=== PATIENT | female | born 1960 | race Caucasian/White ===

== ENCOUNTER 2021-01-17 10:17 | Emergency (ER) | payer MEDICAID, SELFPAY ==
--- NOTE | 2021-01-17 | ECG_ITS ---
Test Reason : DIFFICULTY BREATHING Blood Pressure : / mmHG Vent. Rate : 098 BPM Atrial Rate : 098 BPM P-R Int : 134 ms QRS Dur : 080 ms QT Int : 348 ms P-R-T Axes : 050 -28 024 degrees QTc Int : 444 ms Normal sinus rhythm Minimal voltage criteria for LVH, may be normal variant Borderline ECG When compared with ECG of 08-APR-2017 11:17, No significant change was found Referred By: Generic ED Physician Electronically Signed By:TYLER SWEENEY MD
--- NOTE | ~2021-01-17 | XR_ITS ---
EXAMINATION: XR CHEST CLINICAL INFORMATION: Asthma COMPARISON: Chest 04/08/2017 TECHNIQUE: Frontal view of the chest was obtained. FINDINGS: The lungs are well-expanded and clear of acute pneumonic process. There is minimal linear scarring in the lingula. The heart size and pulmonary vascularity is normal. There is mild spondylosis dorsal spine. No lytic process. XR/XR chest 1V IMPRESSION: Minimal scarring in the lingula. No change from 04/08/2017.
[2021-01-17 10:25] VITALS: BP 123/85; PULSE 100; RESP 21; TEMP 36.7; O2SAT 98; BMI 32.5
--- NOTE | 2021-01-17 10:36 | PC.NURSE ---
lungs - coarse exp wheezing all lobes.
--- NOTE | 2021-01-17 11:30 | ED.SOB ---
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 Feels like her asthma which is unrelieved with her MDI and nebulizer machine at home. No fevers, chills, chest pain, leg swelling or pain. She denies any recent history of admissions for asthma. No history of intubation. Related Data Previous Rx's Medication Instructions Recorded albuterol sulfate 2 puff INHALATION QID PRN #6.7 g 01/17/21 prednisone 40 mg PO DAILY #8 tab 01/17/21 Allergies Allergy/AdvReac Type Severity Reaction Status Date / Time aspirin [ASA] Allergy Unknown RASH Unverified 04/07/20 17:40 Review of Systems Review of Systems: Yes all other systems are reviewed and are negative Constitutional: Constitutional: Reports no additional constitutional complaints, Denies body ache(s), Denies chills, Denies fever(s), Denies headache(s) and Denies weakness Eyes: Eyes: Reports no additional eye complaints and Denies change in vision ENT: Reports system reviewed and no additional complaints, except as documented, Denies dizziness, Denies headache(s), Denies nasal congestion, Denies nasal discharge and Denies neck pain Cardiovascular: Cardiovascular: Reports no additional cardiovascular complaints, Denies chest pain, Denies leg edema and Reports dyspnea Respiratory: Respiratory: Reports no additional respiratory complaints, Reports cough and Reports dyspnea Gastrointestinal: Gastrointestinal: Reports no additional gastrointestinal complaints, Denies abdominal pain, Denies diarrhea, Denies nausea and Denies vomiting Genitourinary: Genitourinary: Reports no additional female genitourinary complaints and Denies urinary incontinence Musculoskeletal: Musculoskeletal: Reports no additional musculoskeletal complaints, Denies back pain, Denies arthralgias, Denies joint swelling, Denies neck pain, Denies numbness and Denies tingling Integumentary/Breasts: Skin/Breast: Reports system reviewed and no additional complaints, except as docu and Denies rash Neurologic: Reports system reviewed and no additional complaints, except as documented, Denies Abnormal speech present, Denies dizziness, Denies headache(s), Denies numbness, Denies tingling and Denies weakness PMFSH Past Medical History Attestation statement: The following information was validated with the patient. Source: old records reviewed and nursing notes reviewed Medical History Asthma Diabetes High cholesterol Surgical History H/O abdominal surgery Social History Social History Alcohol intake: never Patient Tobacco Use Status: Current everyday Tobacco user Use of substances other than those prescribed or required for medical reasons: No Advance Directives: No Advance Directives Information Provided: Yes Physical Exam Vital Signs: Vital Signs: Last Vital Signs Temp 98.2 F 01/17/21 13:57 Pulse 97 01/17/21 13:57 Resp 15 01/17/21 13:57 BP 108/63 01/17/21 13:57 Pulse Ox 98 01/17/21 13:57 Body Mass Index 32.5 Const: General: cooperative, healthy appearing, comfortable and no acute distress Orientation/consciousness: patient oriented x3 Limitations: no limitations HENMT: Head: Yes normal to inspection Ears: hearing grossly normal bilaterally General nose exam: Normal external nose present Face and sinus: Yes normal facial exam Mouth: Normal oral and palatal mucosa present Throat: Yes posterior oropharynx normal Eyes: General: appearance normal, both eyes and all related structures Pupils: Equal, round and reactive pupils present Neck: Neck: Yes normal visual inspection Chest: Chest palpation & inspection: normal inspection of the chest Resp: Other: Inspiratory and expiratory wheezing throughout Effort & Inspection: normal respiratory effort Cardio: Rate: regular rate Rhythm: regular rhythm Peripheral pulses: Peripheral pulses 2+ throughout GI: Inspection: Yes normal to inspection Palpation (GI): Soft to palpation and nontender Auscultation: normal bowel sounds Back/Spine/Pelvis: Thoracic/Lumbar Spine: thoracic and lumbar spine normal to inspection Skin: General skin exam: no rashes or lesions noted Neuro: General: patient oriented x3, no focal motor deficits and normal sensation to monofilament Cranial nerves: Yes Equal, round and reactive pupils present Cognition (Neuro): normal cognition Speech: No Abnormal speech present Gait exam (Neuro): Normal gait present Motor exam (neuro): 5/5 motor strength present throughout Extrem: General: Yes normal to inspection, Yes no pedal edema and Yes no calf tenderness Course Course Course Narrative: 60-year-old female with a past medical history of asthma here with complaints of cough, wheezing and shortness of breath for the last 2 days. No fevers or chills or chest pain. She does have wheezing on arrival with stable vital signs. Will check chest x-ray, EKG, COVID screen, labs. Will give DuoNeb, magnesium and Solu-Medrol - Labs are unremarkable. EKG shows no ischemic changes. Chest x-ray negative. COVID screen negative. Patient is still having some mild expiratory wheezing so will repeat her nebulizer 1515- Patient feeling improved. Wheezing is improved. She ambulated around the emergency department with oxygen saturations greater than 96%. Likely asthma exacerbation. Will send home with brief course of prednisone. Reviewed worrisome signs and symptoms and when to return to the emergency department. Comfortable discharge home. MDM - SOB/Dyspnea Differential Diagnosis Differential diagnosis: Likely pneumonia and asthma with exacerbation Medical Records Attestation: I reviewed the patient's medical records. Lab Data Attestation: I reviewed the patient's lab results. Result diagrams: 01/17/21 11:28 01/17/21 11:28 Labs: Lab Results 01/17/21 01/17/21 01/17/21 Range/Units 11:28 11:28 11:28 WBC 10.0 (4.8-10.8) X10*3/uL RBC 4.27 (4.20-5.50) X10*6/uL Hgb 11.6 L (12.0-16.0) g/dl Hct 37.3 (37-47) % MCV 87.4 (80-98) fL MCH 27.2 (27.0-33.0) pg MCHC 31.1 (31.0-35.0) g/dl RDW 13.9 (11.0-16.0) % Plt Count 180 (160-400) X10*3/uL MPV 13.0 H (9.4-12.3) fL Immature Gran % (Auto) 0.3 (0.0-0.4) % Neut % (Auto) 51.7 (45-73) % Lymph % (Auto) 37.4 (20-40) % [place] % (Auto) 7.1 (2-11) % Eos % (Auto) 2.9 (0-4) % Baso % (Auto) 0.6 (0-2) % Lymph # (Auto) 3.7 (1.2-4.9) X10*3/uL [place] # (Auto) 0.7 (0.1-1.2) X10*3/uL Eos # (Auto) 0.3 (0.0-0.4) X10*3/uL Baso # (Auto) 0.1 (0.0-0.2) X10*3/uL Abs Immat Gran (auto) 0.03 (0.00-0.03) X10*3/uL Absolute Neuts (auto) 5.2 (2.0-8.3) X10*3/uL Absolute Nucleated RBC 0.000 (0.0-0.012) X10*3/uL Nucleated RBC % (auto) 0.0 (0.0-0.2) /100WBC Smear Tech's Comments Not Reportable Sodium 141 (135-145) mmol/L Potassium 4.0 (3.3-5.1) mmol/L Chloride 105 (96-108) mmol/L Carbon Dioxide 24 (22-29) mmol/L Anion Gap 16 (12-20) BUN 10 (9-16) mg/dL Creatinine 0.74 (0.5-1.4) mg/dL Estim Creat Clear Calc 78.5 Estimated GFR > 60 Random Glucose 260 H (60-115) mg/dL Calcium 9.6 (8.4-10.2) mg/dL COVID-19 ([facility]) Negative (Negative) COVID-19 Clin Com See Note Imaging Data Chest x-ray: Attestation: I personally reviewed and interpreted this imaging study as follows: Radiologist's impression: EXAMINATION: XR CHEST CLINICAL INFORMATION: Asthma COMPARISON: Chest 04/08/2017 TECHNIQUE: Frontal view of the chest was obtained. FINDINGS: The lungs are well-expanded and clear of acute pneumonic process. There is minimal linear scarring in the lingula. The heart size and pulmonary vascularity is normal. There is mild spondylosis dorsal spine. No lytic process. XR/XR chest 1V IMPRESSION: Minimal scarring in the lingula. No change from 04/08/2017. ECG Data Attestation: I personally reviewed and interpreted this ECG as follows: ECG interpretation date: 01/17/21 ECG interpretation time: 10:34 Interpretation: normal sinus rhythm with a rate of 98, normal [place], normal QRS, normal QT Discharge Plan Discharge Clinical Impression: Asthma with exacerbation Patient Disposition: Home, Self-Care Instructions: Asthma (ED) Additional Instructions: Start prednisone tomorrow Increase fluids, rest Your labs and x-ray was normal today. Continue your inhalers and follow up with her primary care doctor Prescriptions: New prednisone 20 mg tablet 40 mg PO DAILY Qty: 8 RF: 0 albuterol sulfate 90 mcg/actuation HFA aerosol inhaler 2 puff inhalation QID PRN (Reason: shortness of breath or wheezing) Qty: 6.7 RF: 0 Referrals: Physician,None [Primary Care Provider] - 2 days Print Language: Sami
[2021-01-17] MEDS: Albuterol/Iprat 2.5/0.5MG 3 ML AMPUL.NEB INHALE (11:37)
[2021-01-17 11:38] VITALS: PULSE 94; O2SAT 98
[2021-01-17 11:42] LABS: Basophils Absolute Auto 0.1 X10*3/uL (0.0-0.2); Basophils Percent Auto 0.6 % (0-2); Eosinophils Absolute Auto 0.3 X10*3/uL (0.0-0.4); Hemoglobin 11.6 g/dl (12.0-16.0); Lymphocytes Percent Auto 37.4 % (20-40); MANUAL DIFF FLAG SCAN; Platelet Count 180 X10*3/uL (160-400); SCAN SMEAR FLAG 1
[2021-01-17 11:44] LABS: Eosinophils Percent Auto 2.9 % (0-4); Hematocrit 37.3 % (37-47); Imm Gran Abs Auto 0.03 X10*3/uL (0.00-0.03); Imm Gran Pct Auto 0.3 % (0.0-0.4); Lymphocytes Absolute Auto 3.7 X10*3/uL (1.2-4.9); Mean Corpuscular HGB Conc 31.1 g/dl (31.0-35.0); Mean Corpuscular Hemoglobin 27.2 pg (27.0-33.0); Mean Corpuscular Volume 87.4 fL (80-98); Monocytes Absolute Auto 0.7 X10*3/uL (0.1-1.2); Monocytes Percent Auto 7.1 % (2-11); Neutrophils Absolute Auto 5.2 X10*3/uL (2.0-8.3); Neutrophils Percent Auto 51.7 % (45-73); Red Blood Count 4.27 X10*6/uL (4.20-5.50); Red Cell Distribution Width 13.9 % (11.0-16.0)
[2021-01-17 11:49] LABS: PLT ABN DIST 1
[2021-01-17] MEDS: Magnesium Sulfate/H2O 2 GM/50 ML PIGGYBACK IV (11:51)
[2021-01-17] MEDS: methylPREDNISolone Sod Succ 125 MG/2 ML VIAL IVPUSH (11:52)
[2021-01-17 11:58] LABS: COVID-19 Test Negative (Negative); IDNOW Serial# 9DD0AD1C
[2021-01-17 12:01] LABS: Anion Gap 16 (12-20); Blood Urea Nitrogen 10 mg/dL (9-16); Calcium 9.6 mg/dL (8.4-10.2); Carbon Dioxide 24 mmol/L (22-29); Chloride 105 mmol/L (96-108); Creatinine Clr Calc Pharmacy 78.5; Estimated Glomerular Filt Rate > 60; Glucose Random 260 mg/dL (60-115); Sodium 141 mmol/L (135-145)
[2021-01-17] MEDS: Albuterol Sulfate (0.083%) 2.5 MG/3 ML VIAL.NEB 5 MG INHALE (13:55)
[2021-01-17 13:57] VITALS: BP 108/63; PULSE 100; PULSE 97; RESP 15; TEMP 36.8; O2SAT 96; O2SAT 98
--- NOTE | 2021-01-17 15:12 | PC.NURSE ---
spo2 95% while ambulating on RA. pt reports significant improvement in work of breathing. 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
== END 2021-01-17 15:36 | disposition home or self-care (01) ==
PROVIDERS: Nurse Practitioner Family; Emergency Provider Emergency Medicine Emergency Medical Services
DX: J45.901 Unspecified asthma with (acute) exacerbation (principal); Z20.822 Contact with and (suspected) exposure to COVID-19
CPT/HCPCS: 36415; 71045; 80048; 85025; 87635; 93005; 94640; 96365; 96366; 96375; 99284; 99285; J2930; J3475

== ENCOUNTER 2021-01-29 09:47 | Emergency (ER) | payer OTHER, SELFPAY ==
--- NOTE | ~2021-01-29 | CT_ITS ---
EXAMINATION: CT abdomen pelvis w con CLINICAL INFORMATION: Reason for Exam LLQ AP, d/o divert COMPARISON: No prior CT available for comparison. TECHNIQUE: Multidetector volumetric imaging was performed from the superior aspect of the liver through the pubic symphysis 85 mL Omnipaque 350 injected. Sagittal and coronal reformatted images were obtained on the technologist's workstation. This CT examination was performed using dose optimization techniques as appropriate, variously including the following: *Automated exposure control *Adjustment of mA and/or kV according to patient size (this includes techniques or standardized protocols for targeted exams where dose is matched to indication/reason for exam; i.e. extremities or head) *Use of iterative reconstruction technique DLP: 633 mGy-cm FINDINGS: LOWER THORAX: Included lung bases are clear. HEPATOBILIARY: Liver is mildly enlarged 23 cm diffusely hypodense suggesting hepatic steatosis. No focal hepatic lesions. No biliary ductal dilatation. GALLBLADDER: Gallbladder not found might have been removed. Prominence of the common bile duct likely physiologic postcholecystectomy. SPLEEN: Spleen is normal in size. PANCREAS: No focal mass or ductal dilatation. STOMACH AND GASTROINTESTINAL TRACT: Stomach is grossly unremarkable. There is diverticulosis, there is very mild pericolic fat stranding around the sigmoid colon left lower quadrant suggesting mild diverticulitis. No abscess, no loculated the fluid.. No CT evidence of appendicitis. ADRENALS: No adrenal nodules. KIDNEYS/URETERS: No hydronephrosis, stones or solid mass lesions. URINARY BLADDER: Partially decompressed. PELVIC VISCERA: Unremarkable PERITONEUM: No free air or fluid. LYMPH NODES: No lymphadenopathy. VASCULAR:Abdominal aorta normal in size, no aneurysm found. BONES, ABDOMINAL WALL AND SOFT TISSUES: Age-appropriate changes of the spine and skeletal system, no destructive osteolytic or osteosclerotic bone lesion found CT/CT abdomen pelvis w con IMPRESSION: Mild DIVERTICULITIS left lower quadrant. No evidence of complication. No abscess. Liver mildly enlarged, diffusely hypodense suggesting hepatic steatosis. Prominence of the common bile duct probably physiologic postcholecystectomy.
[2021-01-29 09:52] VITALS: BP 149/85; PULSE 110; RESP 18; TEMP 36.6; O2SAT 96; BMI 32.1
[2021-01-29 11:45] LABS: Basophils Percent Auto 0.3 % (0-2); Eosinophils Absolute Auto 0.2 X10*3/uL (0.0-0.4); Eosinophils Percent Auto 1.9 % (0-4); Hematocrit 39.3 % (37-47); Hemoglobin 12.5 g/dl (12.0-16.0); Imm Gran Abs Auto 0.06 X10*3/uL (0.00-0.03); Imm Gran Pct Auto 0.5 % (0.0-0.4); Lymphocytes Absolute Auto 3.2 X10*3/uL (1.2-4.9); Lymphocytes Percent Auto 27.1 % (20-40); MANUAL DIFF FLAG NO; Mean Corpuscular HGB Conc 31.8 g/dl (31.0-35.0); Mean Corpuscular Hemoglobin 27.5 pg (27.0-33.0); Mean Corpuscular Volume 86.4 fL (80-98); Mean Platelet Volume 12.6 fL (9.4-12.3); Monocytes Absolute Auto 0.5 X10*3/uL (0.1-1.2); Monocytes Percent Auto 4.6 % (2-11); Neutrophils Absolute Auto 7.6 X10*3/uL (2.0-8.3); Neutrophils Percent Auto 65.6 % (45-73); Platelet Count 162 X10*3/uL (160-400); Red Blood Count 4.55 X10*6/uL (4.20-5.50); Red Cell Distribution Width 13.8 % (11.0-16.0); White Blood Count 11.6 X10*3/uL (4.8-10.8)
[2021-01-29 12:26] LABS: Alanine Aminotransferase 30 U/L (0-31); Alkaline Phosphatase 104 U/L (39-117); Anion Gap 14 (12-20); Aspartate Amino Transferase 15 U/L (5-31); Bilirubin Total 0.4 mg/dL (0.0-1.0); Blood Urea Nitrogen 9 mg/dL (9-16); Calcium 9.3 mg/dL (8.4-10.2); Carbon Dioxide 23 mmol/L (22-29); Chloride 104 mmol/L (96-108); Estimated Glomerular Filt Rate > 60; Glucose Random 263 mg/dL (60-115); Potassium 4.3 mmol/L (3.3-5.1); Sodium 137 mmol/L (135-145); Total Protein 6.9 g/dL (6.5-8.0)
[2021-01-29 13:09] LABS: Glucose Urine UA >=1000 MG/DL (NEG); Leukocyte Esterase Urine NEG (NEG); Nitrite Urine NEG (NEG); PH 5.5 (5.0-8.0); Specific Gravity - Urine 1.025 (1.005-1.025); Urine Blood NEG (NEG); Urine Ketones NEG (NEG); Urine Protein NEG (NEG-TRACE)
--- NOTE | 2021-01-29 13:09 | ED_ITS ---
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 Pain radiates from the mid left side down to the left lower quadrant. There is no associated nausea, vomiting, diarrhea. Her last BM was this morning and normal. She does have some urinary frequency but no dysuria or hematuria. No fevers or chills. Related Data Previous Rx's Medication Instructions Recorded albuterol sulfate 2 puff INHALATION QID PRN #6.7 g 01/17/21 prednisone 40 mg PO DAILY #8 tab 01/17/21 levofloxacin 750 mg PO DAILY 7 Days #7 tab 01/29/21 metronidazole [Flagyl] 500 mg PO BID 7 Days #14 tab 01/29/21 oxycodone 5 mg PO Q6H PRN #10 tab 01/29/21 Allergies Allergy/AdvReac Type Severity Reaction Status Date / Time aspirin [ASA] Allergy Unknown RASH Unverified 04/07/20 17:40 Review of Systems Review of Systems Yes all other systems are reviewed and are negative Constitutional: Reports no additional constitutional complaints, Denies body ache(s), Denies chills, Denies fever(s), Denies headache(s) and Denies weakness Eyes: Reports no additional eye complaints and Denies change in vision Reports system reviewed and no additional complaints, except as documented, Denies dizziness, Denies headache(s), Denies nasal congestion, Denies nasal discharge and Denies neck pain Cardiovascular: Reports no additional cardiovascular complaints, Denies chest pain, Denies leg edema and Denies dyspnea Respiratory: Reports no additional respiratory complaints, Denies cough and Denies dyspnea Gastrointestinal: Reports no additional gastrointestinal complaints, Reports abdominal pain, Denies diarrhea, Denies nausea and Denies vomiting Genitourinary: Reports no additional female genitourinary complaints and Denies urinary incontinence Musculoskeletal: Reports no additional musculoskeletal complaints, Reports back pain, Denies arthralgias, Denies joint swelling, Denies neck pain, Denies n umbness and Denies tingling Skin/Breast: Reports system reviewed and no additional complaints, except as docu and Denies rash Reports system reviewed and no additional complaints, except as documented, Denies Abnormal speech present, Denies dizziness, Denies headache(s), Denies numbness, Denies tingling and Denies weakness Physical Exam Vital Signs: Vital Signs: Last Vital Signs Temp 98.1 F 01/29/21 14:00 Pulse 88 01/29/21 14:00 Resp 18 01/29/21 14:54 BP 122/63 01/29/21 13:25 Pulse Ox 98 01/29/21 14:00 Body Mass Index 32.1 Const: General: cooperative, healthy appearing, comfortable and no acute distress Orientation/consciousness: patient oriented x3 Limitations: no limitations HENMT: Head: Yes normal to inspection Ears: hearing grossly normal bilaterally General nose exam: Normal external nose present Face and sinus: Yes normal facial exam Mouth: Normal oral and palatal mucosa present Throat: Yes posterior oropharynx normal Eyes: General: appearance normal, both eyes and all related structures Pupils: Equal, round and reactive pupils present Neck: Neck: Yes normal visual inspection Chest: Chest palpation & inspection: normal inspection of the chest Resp: Effort & Inspection: normal respiratory effort Auscultation: clear to auscultation bilaterally Cardio: Rate: regular rate Rhythm: regular rhythm Peripheral pulses: Peripheral pulses 2+ throughout GI: Inspection: Yes normal to inspection Palpation (GI): Soft to palpation and Tenderness to palpation present (GI) (LLQ/left mid abdomen-no rebound or guarding) Auscultation: normal bowel sounds : General: Yes CVA tenderness (mild left ) Back/Spine/Pelvis: Back: CVA tenderness (mild left ) Thoracic/Lumbar Spine: thoracic and lumbar spine normal to inspection Skin: General skin exam: no rashes or lesions noted Neuro: General: patient oriented x3, no focal motor deficits and normal sensation to monofilament Cranial nerves: Yes Equal, round and reactive pupils present Cognition (Neuro): normal cognition Speech: No Abnormal speech present Gait exam (Neuro): Normal gait present Motor exam (neuro): 5/5 motor strength present throughout Extrem: General: Yes normal to inspection Course Course Course Narrative: 60-year-old female here with complaints of left-sided back pain which radiates to the left lower abdomen since waking. No other associated symptoms. Will check labs, UA, CT and provide analgesia 1450-CT shows mild diverticulitis. Labs are unremarkable. UA shows no signs of infection. Pain is improved after 2nd dose of morphine. Will send home with course of antibiotics. Reviewed worrisome signs and symptoms of when to return to the emergency department with the patient and her daughter. Comfortable discharge home. MDM - Abdominal Pain Differential Diagnosis Differential diagnosis: Likely calculus of kidney and diverticulitis Medical Records Attestation: I reviewed the patient's medical records. Lab Data Attestation: I reviewed the patient's lab results. Result diagrams: 01/29/21 11:40 01/29/21 11:40 Labs: Lab Results 01/29/21 01/29/21 01/29/21 Range/Units 11:40 11:40 12:27 WBC 11.6 H (4.8-10.8) X10*3/uL RBC 4.55 (4.20-5.50) X10*6/uL Hgb 12.5 (12.0-16.0) g/dl Hct 39.3 (37-47) % MCV 86.4 (80-98) fL MCH 27.5 (27.0-33.0) pg MCHC 31.8 (31.0-35.0) g/dl RDW 13.8 (11.0-16.0) % Plt Count 162 (160-400) X10*3/uL MPV 12.6 H (9.4-12.3) fL Immature Gran % (Auto) 0.5 H (0.0-0.4) % Neut % (Auto) 65.6 (45-73) % Lymph % (Auto) 27.1 (20-40) % [place] % (Auto) 4.6 (2-11) % Eos % (Auto) 1.9 (0-4) % Baso % (Auto) 0.3 (0-2) % Lymph # (Auto) 3.2 (1.2-4.9) X10*3/uL [place] # (Auto) 0.5 (0.1-1.2) X10*3/uL Eos # (Auto) 0.2 (0.0-0.4) X10*3/uL Baso # (Auto) 0.0 (0.0-0.2) X10*3/uL Abs Immat Gran (auto) 0.06 H (0.00-0.03) X10*3/uL Absolute Neuts (auto) 7.6 (2.0-8.3) X10*3/uL Absolute Nucleated RBC 0.000 (0.0-0.012) X10*3/uL Nucleated RBC % (auto) 0.0 (0.0-0.2) /100WBC Sodium 137 (135-145) mmol/L Potassium 4.3 (3.3-5.1) mmol/L Chloride 104 (96-108) mmol/L Carbon Dioxide 23 (22-29) mmol/L Anion Gap 14 (12-20) BUN 9 (9-16) mg/dL Creatinine 0.73 (0.5-1.4) mg/dL Estim Creat Clear Calc 76.0 Estimated GFR > 60 Random Glucose 263 H (60-115) mg/dL Calcium 9.3 (8.4-10.2) mg/dL Total Bilirubin 0.4 (0.0-1.0) mg/dL AST 15 (5-31) U/L ALT 30 (0-31) U/L Alkaline Phosphatase 104 (39-117) U/L Total Protein 6.9 (6.5-8.0) g/dL Albumin 4.0 (3.5-5.0) g/dL Lipase 47 (8-78) U/L Urine Color YELLOW Urine Appearance CLEAR Urine pH 5.5 (5.0-8.0) Ur Specific [place] 1.025 (1.005-1.025) Urine Protein NEG (NEG-TRACE) MG/DL Urine Glucose (UA) >=1000 H (NEG) MG/DL Urine Ketones NEG (NEG) MG/DL Urine Blood NEG (NEG) Urine Nitrite NEG (NEG) Ur Leukocyte Esterase NEG (NEG) Urine RBC 0-2 (0) /HPF Urine WBC 0 (0-4) /HPF Ur Squamous Epith Cells TRACE /LPF Urine Bacteria NONE /LPF Urine Mucus TRACE /LPF Imaging Data CT scan - abdomen: Attestation: I personally reviewed and interpreted this imaging study as follows: Radiologist's impression: [address] [id number] Scan ReportSigned Patient: Sven Grubbs#: [id number]: 9Acct:[id number]/Sex: 60 / FADM Date: 01/29/21Loc: E[address] Dr: Ordering Physician: ANGELA LOVING NP Date of Service: 01/29/21 Procedure(s): CT abdomen pelvis w con Accession Number(s): [id number] cc: ANGELA LOVING NP~ EXAMINATION: CT abdomen pelvis w con CLINICAL INFORMATION: Reason for Exam LLQ AP, d/o divert COMPARISON: No prior CT available for comparison. TECHNIQUE: Multidetector volumetric imaging was performed from the superior aspect of the liver through the pubic symphysis 85 mL Omnipaque 350 injected. Sagittal and coronal reformatted images were obtained on the technologist's workstation. This CT examination was performed using dose optimization techniques as appropriate, variously including the following: *Automated exposure control *Adjustment of mA and/or kV according to patient size (this includes techniques or standardized protocols for targeted exams where dose is matched to indication/reason for exam; i.e. extremities or head) *Use of iterative reconstruction technique DLP: 633 mGy-cm FINDINGS: LOWER THORAX: Included lung bases are clear. HEPATOBILIARY: Liver is mildly enlarged 23 cm diffusely hypodense suggesting hepatic steatosis. No focal hepatic lesions. No biliary ductal dilatation. GALLBLADDER: Gallbladder not found might have been removed. Prominence of the common bile duct likely physiologic postcholecystectomy. SPLEEN: Spleen is normal in size. PANCREAS: No focal mass or ductal dilatation. STOMACH AND GASTROINTESTINAL TRACT: Stomach is grossly unremarkable. There is diverticulosis, there is very mild pericolic fat stranding around the sigmoid colon left lower quadrant suggesting mild diverticulitis. No abscess, no loculated the fluid.. No CT evidence of appendicitis. ADRENALS: No adrenal nodules. KIDNEYS/URETERS: No hydronephrosis, stones or solid mass lesions. URINARY BLADDER: Partially decompressed. PELVIC VISCERA: Unremarkable PERITONEUM: No free air or fluid. LYMPH NODES: No lymphadenopathy. VASCULAR:Abdominal aorta normal in size, no aneurysm found. BONES, ABDOMINAL WALL AND SOFT TISSUES: Age-appropriate changes of the spine and skeletal system, no destructive osteolytic or osteosclerotic bone lesion found CT/CT abdomen pelvis w con IMPRESSION: Mild DIVERTICULITIS left lower quadrant. No evidence of complication. No abscess. Liver mildly enlarged, diffusely hypodense suggesting hepatic steatosis. Prominence of the common bile duct probably physiologic postcholecystectomy. Discharge Plan Discharge Clinical Impression: Diverticulitis Patient Disposition: Home, Self-Care Instructions: Diverticulitis (ED), Diverticulitis Diet (ED) Additional Instructions: Start your antibiotics today Take the pain medication as needed Return for severe abdominal pain, two a more vomiting episodes, fever greater than 100.4 Prescriptions: New levofloxacin 750 mg tablet 750 mg PO DAILY 7 Days Qty: 7 RF: 0 metronidazole [Flagyl] 500 mg tablet 500 mg PO BID 7 Days Qty: 14 RF: 0 oxycodone 5 mg tablet 5 mg PO Q6H PRN (Reason: pain) Qty: 10 RF: 0 No Action prednisone 20 mg tablet 40 mg PO DAILY Qty: 8 RF: 0 albuterol sulfate 90 mcg/actuation HFA aerosol inhaler 2 puff inhalation QID PRN (Reason: shortness of breath or wheezing) Qty: 6.7 RF: 0 Referrals: Eduardo Forman PA-C [Primary Care Provider] - 2 days Interventions: ED Discharge Assessment Last Done: 01/29/21 15:52 Discharge Date/Time: 01/29/21 15:53 [facility] Past Medical History Attestation statement: The following information was validated with the patient. Source: old records reviewed and nursing notes reviewed Medical History Asthma Diabetes High cholesterol Surgical History H/O abdominal surgery Hx of tubal ligation S/P cholecystectomy Social History Social History Alcohol intake: never Patient Tobacco Use Status: Current everyday Tobacco user Advance Directives: Yes Advance Directives Information Provided: No Advance Directives on File: No Patient : No
[2021-01-29 13:13] LABS: Appearance Urine CLEAR; Color Urine YELLOW
[2021-01-29 13:21] LABS: Mucus Urine TRACE /LPF; RBC Urine 0-2 /HPF (0); Squamous Epithelial Cell Urine TRACE /LPF; WBC Urine 0 /HPF (0-4)
[2021-01-29 13:23] LABS: Lipase 47 U/L (8-78)
[2021-01-29 13:25] VITALS: BP 122/63; PULSE 90; RESP 18; TEMP 36.6; O2SAT 100
[2021-01-29 13:39] VITALS: RESP 18
[2021-01-29] MEDS: Morphine Sulfate 4 MG/ML CARTRIDGE IVPUSH ×2 (13:39→14:54)
[2021-01-29 14:00] VITALS: PULSE 88; RESP 18; TEMP 36.7; O2SAT 98
[2021-01-29] MEDS: iohexoL 350 MG/ML 100 ML INFUS..BTL IV (14:11)
[2021-01-29 14:54] VITALS: RESP 18
== END 2021-01-29 15:53 | disposition home or self-care (01) ==
PROVIDERS: Emergency Provider Emergency Medicine; PCP Physician Assistant
DX: K57.92 Diverticulitis of intestine, part unspecified, without perforation or abscess without bleeding (principal); E11.9 Type 2 diabetes mellitus without complications; J45.909 Unspecified asthma, uncomplicated; Z79.899 Other long term (current) drug therapy
CPT/HCPCS: 36415; 74177; 80053; 81001; 81003; 83690; 85025; 96374; 96376; 99284; J2270; Q9967

== ENCOUNTER 2024-08-21 14:45 | Outpatient (REF) | payer MEDICARE, MEDICAID, SELFPAY ==
--- NOTE | ~2024-08-21 | CT_ITS ---
EXAMINATION: CT HEAD WITHOUT CONTRAST CLINICAL INFORMATION: VERTIGO COMPARISON: CT dated March 12, 2016 TECHNIQUE: Contiguous axial imaging was performed from the skull base to vertex without intravenous administration of contrast. This CT examination was performed using dose optimization techniques as appropriate, variously including the following: *Automated exposure control *Adjustment of mA and/or kV according to patient size (this includes techniques or standardized protocols for targeted exams where dose is matched to indication/reason for exam; i.e. extremities or head) *Use of iterative reconstruction technique DLP: 686 mGy-cm FINDINGS: No acute intracranial hemorrhage, mass effect, midline shift, hydrocephalus or herniation. Victor-white matter differentiation is normal. Posterior cranial fossa contents demonstrated no acute intracranial hemorrhage or mass effect. Sellar/suprasellar region demonstrated no gross masses or hemorrhage. Craniocervical junction is intact and normal. Tympanic cavities and mastoid cells are aerated. No air-fluid levels in the included paranasal sinuses. No gross masses or hematoma in the intraconal or extraconal compartments of the orbits. CT/CT head/brain wo IV con IMPRESSION: No acute intracranial hemorrhage or acute brain abnormality by CT. Electronically signed by: Magdi Kumar MD 08/21/2024 03:35 PM EST
--- OUTSIDE RECORDS SUMMARY | 2024-08-21 14:48 | XMS_ITS | Encounter Summary ---
Author Organization [employer] Address [address] [facility] 7t [place] [address] Care Team Providers Care Outside Cutter Hand Name Role Phone Nathaly Hemphill ELIE Primary Care Provider [phone] Reason for Visit * Reason Onset Date Comments Recall 07/30/2024 Encounter Details Date Type Department Care Team (Late st Contact Info) Description 07/30/2024 Telephone [facility] [address] [place] [address] Vianney Rolle MA Recall Aug Social History Tobacco Use Types Packs/Day Years Used Date Smoking Tobacco: Every Day Cigarettes Comments:Eight cigarettes pe r day per pt Alcohol Use Standard Drinks/Week Comments Never 0 (1 standard drink = 0.6 oz pur e alcohol) Depression Answer Date Recorded Patient Health Questionnaire-9 Score 0 04/17/2024 Patient Health Questionnaire-9 Score 0 04/17/2024 Last PHQ-9: Questionnaire Data Not on file 0 04/17/2024 Housing Stability Answer Date Recorded What is your housing situation today? I have drewhamlet jimenez 04/17/[address] you li ve. Do you have problems with any of the following? None of the above 04/17/2024 Food Insecurity Answer Date Recorded Within the past 12 months, y ou worried that your food would run out before you got money to buy more: Never True 04/17/2024 Within the past 12 months,th e food you bought just didn't last and you didn't have enough money to get more: Never True Transportation Answer Date Recorded In the past 12 months, has l ack of transportation kept you from medical appts, meetings, work or from getting things needed for daily living? No 04/17/2024 Utilities Answer Date Recorded In the past 12 months, has t he electric, gas, oil or water company threatened to shut off services in your home? No 04/17/2024 Depression Answer Date Recorded Patient Health Questionnaire-2 Score 0 04/17/2024 Internet Access Answer Date Recorded Internet Access Q1 Yes 04/17/2024 Internet Access Q2 I do not want or need it 03/23 Comments Unknown Sex and Gender Information Value Date Recorded Sex Assigned at Female 12/31/2023 8:37 AM EDT Legal Sex Female 12:09 PM EDT Gender Identity Female 12/31/2023 8:37 AM EDT Sexual Orientation Straight 12/31/2023 8: 37 AM EDT documented as of this encounter Miscellaneous Notes * Telephone Encounter - Vianney Rolle MA - 07/30/2024 10:27 AM EST T/C- Mica Laminating Machine Feeder and Patient made a Office Visit appointment with Jovan for August. Appointment reminder sent via mail. documented in this encounter Plan of Treatment Upcoming Encounters Date Type Department Care Team (Late st Contact Info) Description 08/27/2024 10:30 AM EST Office Visit [facility] [address] [place] [address] Smitha Chin, OD [address] [place] [address] 09/09/2024 10:15 AM EST Office Visit [facility] [address] [place] [address] Nathaly Hemphill NP [address] [place] [address] documented as of this encounter Visit Diagnoses Not on filedocumented in this encounter Additional Health Concerns Assessment Noted Time PHQ-9 Depression Total Score: 0 04/17/20 24 2:18 PM EDT documented as of this encounter Care Teams Outside Cutter Hand Relationship Specialty Start Date End Date Nathaly Hemphill NP [address] [place] [address] PCP - General Family Medicine 04/20/24 documented as of this encounter
--- OUTSIDE RECORDS SUMMARY | 2024-08-21 14:48 | XMS_ITS | Encounter Summary ---
Author Organization [employer] Address [address] [place] [address] 7 [place] [address] Care Team Providers Care Infantry Operations Specialist Name Role Phone Nathaly Hemphill SHIFT PRODUCTION SUPERVISOR Primary Care Provider [phone] Encounter Details Date Type Department Care Team (Late Contact Info) Description 04/03/2024 Orders Only [facility] [address] [place] [phone] Kayli Guzman, DarrickD [address] [place] [address] Social History Tobacco Use Types Packs/Day Years Used Date Smoking Tobacco: Every Day Cigarettes Comments:Eight cigarettes pe r day per pt Comments Unknown Sex and Gender Information Value Date Recorded Sex Assigned at Female 12/31/2023 8:37 AM EDT Legal Sex Female 12:09 PM EDT Gender Identity Female 12/31/2023 8:37 AM EDT Sexual Orientation Straight 12/31/2023 8: 37 AM EDT documented as of this encounter Plan of Treatment Upcoming Encounters Date Type Department Care Team (Late Contact Info) Description 08/27/2024 10:30 AM EST Office Visit [facility] [address] [place] [address] TarSmitha julio, OD [address] [place] [address] 09/09/2024 10:15 AM EST Office Visit [facility] [address] [place] [phone] Nathaly Hemphill NP [address] [place] [address] documented as of this encounter Visit Diagnoses Not on filedocumented in this encounter Care Teams Infantry Operations Specialist Relationship Specialty Start Date End Date Nathaly Hemphill NP [address] [place] [id number] PCP - General Family Medicine 04/20/24 documented as of this encounter
--- OUTSIDE RECORDS SUMMARY | 2024-08-21 14:48 | XMS_ITS | Clinical Summary ---
Author Organization [employer] Address [address] [facility] 7[address] [place] [address] Care Team Providers Care Spiral Winding Machine Helper Name Role Phone Nathaly Hemphill ELIE Primary Care Provider [phone] Allergies Active Allergy Reactions Criticality Noted Date Comments Aspirin Rash Low 12/31/2023 To left hand per pt Medications cyclobenzaprine (Flexeril) 10 MG tabletIndicatio ns:Muscle Spasm Take 1 tablet (10 mg) by mouth at bedtime for 21 days. 21 tablet 12/31/19 24 Active gabapentin (Neurontin) 600 MG tabletIndicatio ns:Diabetic Neuropathy Take 1 tablet (600 mg) by mouth at bedtime. 90 tablet 3 12/31/19 24 2024 Active albuterol 108 (90 Base) MCG/ACT inhaler Inhale 2 puffs every 4 (four) hours if needed for wheezing. 18 g 3 12/31/19 24 2024 Active albuterol (2.5 MG/3ML) 0.083% nebulizer solution Take 3 mL by nebulization every 4 (four) hours if needed for wheezing or shortness of breath. 10/06/19 24 Active Alcohol Swabs (Alcohol Prep) pads 1 each 2 times daily. 100 each 11 04/04/20 24 Active Blood Glucose Monitoring Suppl (FreeStyle Lite) w/Device kit 1 each 2 times daily. 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 45 tablet 04/17/20 24 Active Blood Pressure Monitoring (Blood Pressure Cuff) miscIndications :Elevated BP without diagnosis of hypertension 1 kit if needed each day (bp). 1 each 04/17/20 Active famotidine (Pepcid) 20 MG tabletIndicatio ns:Gastroesopha geal reflux disease with esophagitis, unspecified whether hemorrhage Take 1 tablet (20 mg) by mouth 2 times daily. 180 tablet 04/17/20 Active Omeprazole 20 MG tablet delayed-release Indications:Gas troesophageal reflux disease with esophagitis, unspecified whether hemorrhage Take 1 tablet (20 mg) by mouth Once per day. 30 tablet 2 07/06/20 Active montelukast (Singulair) 10 MG tabletIndicatio ns:Asthma Take 1 tablet (10 mg) by mouth at bedtime. 90 tablet 3 07/06/20 24 2024 Active metFORMIN, OSM, (Fortamet) 500 MG 24 hr tabletIndicatio ns:Type 2 diabetes mellitus with diabetic chronic kidney disease, unspecified CKD stage, unspecified whether intermodal customer service insulin use (CMS/HCC) Take 3 tablets (1,500 mg) by mouth with evening meal. Do not crush, chew, or split. 90 tablet 2 07/06/20 24 2024 Active TRUEplus Lancets 33G miscIndications :Type 2 diabetes mellitus with diabetic chronic kidney disease, unspecified CKD stage, unspecified whether usp insulin use (CMS/HCC) USE DIRECTED TO TEST BLOOD SUGAR EVERY DAY 100 each 2 08/13/19 25 Active glucose blood (FREESTYLE LITE) test stripIndication s:Type 2 diabetes mellitus with diabetic chronic kidney disease, unspecified CKD stage, unspecified whether intermodal customer service insulin use (CMS/HCC) USE DIRECTED TO TEST BLOOD SUGAR EVERY DAY 100 each 2 08/13/19 25 Active FREESTYLE LITE test strip Use as instructed 100 each 04/04/20 24 2024 Discontinued Lancets 33G misc 1 each 2 times daily. 100 each 04/04/20 24 2024 Discontinued Active Problems Problem Noted Date Diagnosed Date Vertigo 07/06/2024 Assessment & Plan (07/06/2024 12:39 PM EST): Persistent positional vertigo, Referral to physical therapy Pt is not tolerant of MRI CT ordered Mild intermittent asthma 07/06/2024 Controlled type 2 diabetes m benji with diabetic neuropathy, without long-term current use of insulin 07/06/2024 Assessment & Plan (07/06/2024 12:38 PM EST): Continue metformin 500 mg tid At goal Dietary counseling 05/10/2024 Assessment & Plan (05/10/2024 5:22 PM EDT): Encouraged minimizing processed foods and increasing whole foods particularly vegetables Exercise counseling 05/10/2024 Assessment & Plan (05/10/2024 5:23 PM EDT): Encouraged daily movement Healthcare maintenance 05/10/2024 Assessment & Plan (05/10/2024 5:23 PM EDT): Pt reports utd on screenings, declines referrals today, labs as ordered below, Referral to eye care Tobacco use disorder 05/10/2024 Assessment & Plan (07/06/2024 12:39 PM EST): Actively cutting down Encouraged to continue Declines NRT today Assessment & Plan (05/10/2024 5:22 PM EDT): Declines assistance cutting down today, but open to low dose ct Type 2 diabetes mellitus wit h diabetic chronic kidney disease 04/17/2024 Assessment & Plan (05/10/2024 5:19 PM EDT): Above goal, though pt admits non compliance, rx for metformin and importance of daily medication reviewed 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 o f face 04/17/2024 Assessment & Plan (07/06/2024 12:40 PM EST): Has visit in november, will work with referrals to try to move to earlier visit Pt does not have transportation to options outside of area Assessment & Plan (05/10/2024 5:22 PM EDT): Will refer for botox injections, hx provided by ent May trial tizanidine in interim Tinnitus of left ear 04/17/2024 Assessment & Plan (05/10/2024 5:19 PM EDT): Will refer to ent Elevated BP without diagnosis of hypertension Assessment & Plan (05/10/2024 5:18 PM EDT): Blood pressure cuff prescribed, pt reports no hx of htn Denies symptoms GERD (gastroesophageal reflux disease) Assessment & Plan (07/06/2024 12:38 PM EST): Stable renew omperazole Assessment & Plan (05/10/2024 5:19 PM EDT): Per baseline, will send h2 cesar Encounters Date Type Department Care Team Description 08/11/2024 Refill [facility] [address] [place] [address] Moses Kenny MD Type 2 diabetes mellitus with diabetic chronic kidney disease, unspecified CKD stage, unspecified whether usp insulin use (CMS/HCC) 07/30/2024 Telephone [facility] [address] [place] [id number] Vianney Rolle MA Recall Feb 07/06/2024 11:30 AM EST Office Visit [facility] [address] [place] [address] Nathaly Hemphill NP Vertigo (Primary Dx); Type 2 diabetes mellitus with diabetic chronic kidney disease, unspecified CKD stage, unspecified whether usp insulin use (CMS/HCC); Mild intermittent asthma, unspecified whether complicated; Controlled type 2 diabetes mellitus with diabetic neuropathy, without long-term current use of insulin (CMS/HCC); Gastroesophageal reflux disease with esophagitis, unspecified whether hemorrhage; Tobacco use disorder; 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 I have drew jimenez 04/17/[address] you [...] Orientation Straight 12/31/2023 8: 37 AM EDT Last Filed Vital Signs Vital Sign Reading Time Taken Comments Blood Pressure 139/82 07/06/2024 11:40 AM EST Pulse 92 07/06/2024 11:40 AM EST Temperature 36.8 ??C (98.2 ??F) 07/06/2024 11:[address] Respiratory Rate 18 07/06/2024 11:40 AM EST Oxygen Saturation 98% 04/17/2024 2:13 PM EDT Inhaled Oxygen Concentration - - Weight 72.6 kg (160 lb) 07/06/2024 11:40 AM EST Height 154.9 cm (5' 1 ) 07/06/2024 11:40 AM EST Body Mass Index 30.23 07/06/2024 11:40 AM EST Plan of Treatment Upcoming Encounters Date Type Department Care Team (Late st Contact Info) Description 08/27/2024 10:30 AM EST Office Visit [facility] [address] [place] [address] Smitha Chin, OD [address] [place] [address] 09/09/2024 10:15 AM EST Office Visit [facility] [address] [place] [address] Nathaly Hemphill, ELIE [address] [place] [address] Health Maintenance Due Date Last Done Comments CT Colonography 1959 Colonoscopy 1959 Colorectal Cancer Screening 1959 FIT DNA/Cologuard 1959 FIT 1959 FOBT 1959 Lipid Panel 1959 Sigmoidoscopy 1959 Diabetes: Foot Exam 1969 Eye Exam 1969 Hepatitis C Screening 1977 DTaP/Tdap/Td Vaccines (1 - Tdap) 1978 Pneumococcal Vaccine: 50+ Years (1 of 2 - PCV) 1978 Pap Smear 1980 Cervical Cancer Screening 1989 HPV/Cotest 1989 Mammogram 1999 Zoster Vaccines (1 of 2) 2009 RSV Patients and Patients Aged 60 years or older (1 - Risk 60-74 years 1-dose series) 2019 COVID-19 Vaccine (1 - 2023-2 5 season) 2024 Influenza Vaccine (#1) 2024 Diabetes: Hemoglobin A1C 10/04/2024 024, 04/17/2024 Alcohol/Substance Use Screening 04/17/2025 04/17/2024 Depression Screening 04/17/2025 04/17/2024, 04/17/2024 SDOH Screening 04/17/2025 04/17/2024 Tobacco Screening 07/06/2025 07/06/2024 HIB Vaccines Aged Out No longer eligi ble based on patient's age to complete this topic HPV Vaccines Aged Out No longer eligi ble based on patient's age to complete this topic Hepatitis A Vaccines Aged Out No long er eligible based on patient's age to complete this topic Hepatitis B Vaccines Aged Out No long er eligible based on patient's age to complete this topic IPV Vaccines Aged Out No longer eligi ble based on patient's age to complete this topic Meningococcal Vaccine Aged Out No britt brenden eligible based on patient's age to complete this topic RSV under 20 months Aged Out No longe r eligible based on patient's age to complete this topic Rotavirus Vaccines Aged Out No longer eligible based on patient's age to complete this topic Procedures Procedure Name Priority Date/Time Associated Diagnosis Comments POCT GLYCATED HEMOGLOBIN, TOTAL Routine 07/06/2024 11:43 AM EST Type 2 diabetes mellitus with diabetic chronic kidney disease, unspecified CKD stage, unspecified whether intermodal customer service insulin use ([facility]) POCT GLUCOSE Routine 07/06/2024 11:42 AM EST Type 2 diabetes mellitus with diabetic chronic kidney disease, unspecified CKD stage, unspecified whether usp insulin use ([facility]) from Last 3 Months Results * (ABNORMAL) POCT HGB A1C (07/06/2024 11:43 AM EST) Hemoglobin A1C 7.1(A) 4.0 - 6.0 % QC Media Lot # [id number] Lot# Expiration Date Blood 07/06/2024 11:4 3 AM EST Nathaly Hemphill NP POINT OF CARE TEST ENTER/EDIT OR DERABLES Final Result * POCT Glucose (07/06/2024 11:42 AM EST) [facility] [address] Glucose Blood, POC 136 60 - 200 mg/dL QC Media Lot # [id number] Lot# Expiration Date ,884 Blood Capillary blood specimen / Unknown 07/06/2024 11:42 AM EST Result [facility] Nathaly Hemphill NP POINT OF CARE TEST ENTER/EDIT OR DERABLES Final Result from Last 3 Months Insurance [place] [id number] [place] [address] [place] [phone] Care Teams Spiral Winding Machine Helper Relationship Specialty Start Date End Date Nathaly Hemphill NP [address] [place] [id number] PCP - General Family Medicine 04/20/24
--- OUTSIDE RECORDS SUMMARY | 2024-08-21 14:48 | XMS_ITS | Clinical Summary ---
Author Organization [facility] Address [address] [place] [id number] Care Team Providers Care Billet Sawyer Name Role Phone Cheyenne Nguyen MD Primary Care Provider Social History Tobacco Use Types Packs/Day Years Used Date Smoking Tobacco: Never Assessed Sex and Gender Information Value Date Recorded Sex Assigned at Not on file Gender Identity Not on file Sexual Orientation Not on file Plan of Treatment Health Maintenance Due Date Last Done Comments Breast Cancer Screening 1959 Diabetes: Annual GFR (Glomerular Filtration Rate) 1959 Diabetes: Annual Foot Exam 1969 Diabetes: Annual Retina Eye Exam 1969 Cervical Cancer Screening: P ap Smear 1980 Zoster Vaccines (1 of 2) 2009 Pneumococcal Vaccine: 65+ Years (2 of 2 - PPSV23 or PCV20) 10/16/2016 08/21/2016 Pneumococcal Vaccine: Pediatrics (0 to 5 Years) and At-Risk Patients (6 to 64 Years) (2 of 2 - PPSV23 or PCV20) 10/16/2016 08/21/2016 RSV Immunization Patients 60 + Years Old (1 - Risk 60-74 years 1-dose series) 2019 COVID-19 Vaccine (1 - 2023-2 5 season) 2024 Influenza Vaccine (#1) 2024 7, 08/21/2016 Cholesterol Screening (Lipid Panel) 04/30/2024 Colorectal Cancer Screening: Colonoscopy 04/30/2024 Depression Screening 04/30/2024 Diabetes: Annual Urine Albumin-Creatinine Ratio (uACR) 04/30/2024 Diabetes: Blood Sugar Contro l Test (HGBA1C) 04/30/2024 Hepatitis C Screening 04/30/2024 Osteoporosis Screening (Bone Density Screening) 04/30/2024 Social Influencers of Health Screening 04/30/2024 Falls Risk Assessment 2024 DTaP,Tdap,and Td Vaccines (2 - Td or Tdap) 08/21/2026 08/21/2016 HIB Vaccines Aged Out No longer eligi [...] on patient's age to complete this topic MMR Vaccines Aged Out No longer eligi ble based on patient's age to complete this topic Meningococcal ACWY Vaccine Aged Out N o longer eligible based on patient's age to complete this topic RSV Immunization Patients Under 20 months Aged Out No longer eligible b ased on patient's age to complete this topic Varicella Vaccines Aged Out No longer eligible based on patient's age to complete this topic Care Teams Billet Sawyer Relationship Specialty Start Date End Date Cheyenne Nguyen MD [address] [place] [address] PCP - General Internal Medicine 03/13/16
--- OUTSIDE RECORDS SUMMARY | 2024-08-21 14:48 | XMS_ITS | Clinical Summary ---
Author Organization [facility] Address [address] [place] [address] Care Team Providers Care Crowning Hammer Operator Name Role Phone Chava Burdick MD Primary Care Provider [phone] Source Comments PLEASE NOTE, if this patient is a minor, it may be UNLAWFUL to discuss sensitive information that is contained in these records (such as FAMILY PLANNING, MENTAL HEALTH or SUBSTANCE ABUSE) with the minor patient's parent or other person without the patient's specific authorization.[facility] Allergies Active Allergy Reactions Criticality Noted Date Comments Aspirin Rash Medium 04/10/2019 Medications nebulizer and compressorIndicatio ns:Intermittent asthma without complication, unspecified asthma severity Use with SOB and cough as needed 1 Each 06/26/20 19 Active inhalational spacing deviceIndications:M ild intermittent asthma with acute exacerbation Use as directed 1 Inhaler 5 07/10/20 19 Active blood pressure monitorIndications: Diabetes mellitus due to underlying condition with hyperosmolarity without coma, without long-term current use of insulin ([facility]),Tobacco use disorder,Elevated BP without diagnosis of hypertension Use as directed 1 Kit 04/15/20 20 Active polyethylene glycol 3350 (MIRALAX) 17 gram/dose powderIndications:C onstipation, unspecified constipation type Take 17 g by mouth once daily 510 g 2 10/13/19 21 Active PROAIR HFA 90 mcg/actuation inhalerIndications: Mild intermittent asthma without complication INHALE 2 PUFFS INTO LUNGS EVERY 4 HOURS NEEDED FOR SHORTNESS OF BREATH OR WHEEZING RESCUE INHALER 8.5 g 5 09/13/19 22 Active alcohol swabsIndications:Di abetes mellitus due to underlying condition with hyperosmolarity without coma, without long-term current use of insulin ([facility]) Use as directed 400 Each 11/02/19 Active lancets (FREESTYLE LANCETS) 28 gaugeIndications:Di abetes mellitus due to underlying condition with hyperosmolarity without coma, without long-term current use of insulin ([facility]) PATIENT TESTS 2 TIMES DAILY. 100 Each 11/02/19 Active blood-glucose meter monitoring kitIndications:Diab etes mellitus due to underlying condition with hyperosmolarity without coma, without long-term current use of insulin ([facility]),Mild intermittent asthma with acute exacerbation For the glucometer covered by insurance. Patient to test 2 times daily as directed. Dx code: 250.00 Patient is not insulin dependent. 1 Each 11/02/19 Active lidocaine (LIDODERM) 5 % patchIndications:Ch ronic right shoulder pain Place 1 Patch onto the skin once daily (every 24 hours) 30 Patch 11/02/19 Active naproxen (NAPROSYN) 500 mg tabletIndications:C hronic right shoulder pain TAKE 1 TABLET BY MOUTH TWICE A DAY WITH A MEAL 60 Tablet 08/17/19 23 Active montelukast (SINGULAIR) 10 mg tabletIndications:D iabetes mellitus due to underlying condition with hyperosmolarity without coma, without long-term current use of insulin ([facility]) TAKE 1 TABLET BY MOUTH EVERYDAY AT BEDTIME 30 Tablet 07/19/20 23 Active omeprazole (PRILOSEC) [address] capsule Take 1 Capsule by mouth once daily 30 Capsule 07/19/20 23 Active metFORMIN (GLUCOPHAGE) 1,000 mg tabletIndications:D iabetes mellitus due to underlying condition with hyperosmolarity without coma, without long-term current use of insulin ([facility]) Take 1 Tablet by mouth 2 (two) times daily with food 60 Tablet 5 07/19/20 23 Active atorvastatin (LIPITOR) 20 mg tabletIndications:M ixed hyperlipidemia Take 1 Tablet by mouth once daily 90 Tablet 1 07/19/20 23 Active blood sugar diagnostic (BLOOD GLUCOSE TEST) stripsIndications:D iabetes mellitus due to underlying condition with hyperosmolarity without coma, without long-term current use of insulin ([facility]) Test strip brand that patient's insurance covers. Patient tests 2 times daily. Dx code: E11.0. Patient is not insulin dependent. 50 Each 11 07/19/20 23 Active albuterol (PROVENTIL) 2.5 mg /3 mL (0.083 %) nebulizer solutionIndications :Mild intermittent asthma with acute exacerbation Take 3 mL by nebulization every 4 (four) hours as needed for wheezing or shortness of breath 25 mL 5 09/27/19 24 Active cyclobenzaprine (FLEXERIL) 10 mg tabletIndications:C hronic right shoulder pain Take 1 Tablet by mouth nightly at bedtime as needed (shoulder pain) 30 Tablet 2 09/27/19 24 Active gabapentin (NEURONTIN) 400 mg capsuleIndications: Diabetic mononeuropathy associated with type 2 diabetes mellitus ([facility]) TAKE 1 CAPSULE BY MOUTH EVERYDAY AT BEDTIME 30 Capsule 2 09/27/19 24 Active Active Problems Problem Noted Date Diagnosed Date Diverticulosis 10/12/2020 Generalized abdominal pain 10/12/2020 Clonic hemifacial spasm, left 05/12/2020 Facial twitching 11/26/2019 Diabetic mononeuropathy asso ciated with type 2 diabetes mellitus ([facility]) 05/06/2019 Tobacco use disorder 05/06/2019 Hyperlipidemia DM (diabetes mellitus) ([facility]) Asthma Allergy Acid reflux Immunizations Name Administration Dates Next Due Flu, Cell Culture based, Pre servative Free, 6m+, Flucelvax 04/21/2020 Flu, Preservative Free 05/06/2019 Hep B, Adult/Adol (ENERGIX/RECOMBIVAX) 9,05/06/2019 Moderna COVID-19 Vaccine, re d cap blue label, 12+ Primary Series 10/20/2020 PNEUMOCOCCAL POLYSACCHARIDE PPV23 05/06/2019 TDAP 06/26/2019 Family History Medical History Relation Name Comments Cancer Father throat Arthritis Mother Diabetes Mother Heart Problems Mother Hypertension Mother Relation Name Status Comments Father thyroid cancer Mother Alive Social History Tobacco Use Types Packs/Day Years Used Date Smoking Tobacco: Every Day Cigarettes Smokeless Tobacco: Never Tobacco Cessation:Ready to Q uit: No; Counseling Given: Yes Alcohol Use Standard Drinks/Week Comments Not Currently 0 (1 standard drink = 0.6 oz pur e alcohol) Social Connections Answer Date Recorded Connectedness 0 03/26/2024 Financial Resource Strain Answer Date R ecorded Financial Resource Strain 0 2018 Stress Answer Date Recorded Stress 0 04/22/2019 Physical Activity Answer Date Recorded Physical Activity 0 04/22/2019 Food Insecurity Answer Date Recorded Food 0 07/25/2020 Transportation Needs Answer Date Record ed Transportation 0 04/22/2019 Housing Stability Answer Date Recorded Housing 0 04/22/2019 Safety and Environment Answer Date Fredy rded Safety 0 04/22/2019 Utilities Answer Date Recorded Utilities 0 04/22/2019 Employment Answer Date Recorded Employment 0 04/22/2019 Comments No Sex and Gender Information Value Date Recorded Sex Assigned at Female 03/14/2020 5:45 AM PDT Legal Sex Female 12:47 PM PDT Gender Identity Female 03/14/2020 5:45 AM PDT Sexual Orientation Straight 03/14/2020 5: 45 AM PDT Last Filed Vital Signs Vital Sign Reading Time Taken Comments Blood Pressure 128/76 07/19/2023 3:27 PM EST Pulse 102 07/19/2023 3:27 PM EST Temperature 35.7 ??C (96.3 ??F) 07/19/2023 3:27 PM ES T Respiratory Rate 18 07/19/2023 3:27 PM EST Oxygen Saturation 95% 07/19/2023 3:27 PM EST Inhaled Oxygen Concentration - - Weight 74.2 kg (163 lb 9.6 oz) 07/19/2023 3:27 P M EST Height 161.9 cm (5' 3.75 ) 07/19/2023 3:27 PM ES T Body Mass Index 28.3 07/19/2023 3:27 PM EST Plan of Treatment Health Maintenance Due Date Last Done Comments Dental BW 1959 Dental FMX/Pano 1959 Dental Prophy [address] Colonography 2004 Fecal DNA 2004 Flexible Sigmoidoscopy 2004 Imm-Zoster, Recombinant (1 of 2) 2009 FIT/gFOBT 09/19/2018 09/19/2017 (Jessica manrique by Outside Provider) Imm-Hepatitis B (3 of 3 - 19 + 3-dose series) 11/05/2019 06/26/2019, 05/06/2019 Dental Examination 05/16/2020 05/14/2019 Diabetes Microalbumin (w/Creatinine) 11/01/2022 11/01/2021, 07/20/2020, 04/22/2019 Diabetes Foot Exam 03/19/2023 03/19/2022, 0 03/19/2022, 05/06/2019 Serum Creatinine 09/23/2023 09/22/2022, 10/2022, 06/15/2022, Additional history exists Diabetes HbA1c 10/18/2023 07/19/2023, 01/20, 02/14/2023, Additional history exists Breast Cancer Screening (Mammogram) 02/12/2024 02/11/2023, 02/11/2023, 05/20/2019, Additional history exists Lipid Screening 02/15/2024 02/14/2023, 10/20, 05/15/2021, Additional history exists [id number] ( season) 2024 021 Imm-Influenza (#1) 2024 04/21/2020, 1 , 08/21/2016 Imm-Pneumococcal 65+ (3 of 3 - PCV20 or PCV21) 05/06/2024 05/06/2019, 08/21/2016 Bone Density Screening 2024 Falls Prevention 2024 Retinopathy Screening 07/17/2024 07/17/2023 (Managed by Outside Provider), 03/20/2022 Hypertension Screening (#1) 07/18/2024 Tobacco Cessation Counseling (#1) 07/18/2024 Alcohol and Drug Screen 07/22/2024 11/14/19 22, 11/01/2021, 10/04/2020, Additional history exists Depression Annual Screen 07/22/2024 01/25/2022 Colonoscopy 12/21/2027 12/20/2017 (Jessica manrique by Outside Provider) Colorectal Cancer Screening 12/21/2027 Imm-DTaP/Tdap/Td (3 - Td or Tdap) 06/26/2029 019, 08/21/2016 HIV Screening Completed 07/03/2019, 07/03/2019 Hepatitis C Screening Completed 07/03/2019, 019 Goals Goal Patient Goal Type Associated Problems Recent Progress Patient-Stated? Author Decrease soda or juice intake Diet Not on track( 1:33 PM PST) No Sheryl Flores RN, VENKATESH, MERCY, CDE Eat more fruits and vegetables Diet Not on track( 1:33 PM PST) No Sheryl Flores RN, VENKATESH, MERCY, CDE Follow the Plate Method (1/2 plate vegetables, ?? plate starch, ?? plate protein) Diet No change(2020 1:33 PM PST) No Sheryl Flores RN, VENKATESH, MERCY, CDE Increase physical activity Exercise Not on track( 1:31 PM PST) No Sheryl Flores RN, VENKATESH, MERCY, ROXYE Procedures Procedure Name Priority Date/Time Associated Diagnosis Comments A1CFRANK (POCT) Routine 07/19/2023 3:32 PM EST Elevated blood sugar DIABETIC RETINOPATHY SCREENING Routine 03/20/2022 1:49 AM EDT Diabetes mellitus without complication ([facility]) DIABETIC FOOT EXAM Routine 03/19/2022 3: 45 PM EDT Diabetes mellitus without complication ([facility]) COMPREHENSIVE METABOLIC PANEL Routine 11/06/2021 8:32 AM EDT Type 2 diabetes mellitus without complication, without long-term current use of insulin ([facility]) LIPID PANEL Routine 11/06/2021 8:32 AM EDT Type 2 diabetes mellitus without complication, without long-term current use of insulin ([facility]) MICROALBUMIN/CREATINI NE RATIO, URINE, RANDOM Routine 11/01/2021 9:32 AM EDT Type 2 diabetes mellitus without complication, without long-term current use of insulin ([facility]) from Last 3 Months or Most Recently Relevant to Health Maintenance Results * (ABNORMAL) A1CFRANK (POCT) (07/19/2023 3:32 PM EST) HGB A1C 8.5(A) 3.0 - 6.0 % [facility] IN-HOUSE Blood Blood / Unknown 07/19/2023 3 :32 PM EST Chava Burdick MD LAB - BLOOD DRAW Final Result NF IN-HOUSE [place], [place] [phone] * DIABETIC RETINOPATHY SCREENING (03/20/2022 1:49 AM EDT) 03/20/2022 1:49 AM EDT Chava Burdick MD IMG OTHER IMAGING Final Result RETINAVUE * (ABNORMAL) LIPID PANEL (11/06/2021 8:32 AM EDT) CHOLESTEROL 210(H) <200 mg/dL [facility] HDL CHOLESTEROL 54 > OR = 50 mg/dL [facility] TRIGLYCERIDES 199(H) <150 mg/dL [facility] LDL CHOL, CALCULATED 124(H) mg/dL (calc) [facility] Comment: Reference range: <100 Desirable range <100 mg/dL for primary prevention; ?? <70 mg/dL for patients with CHD or diabetic patients with > or = 2 CHD risk factors. LDL-C is now calculated using the Immanuel-Rodriguez calculation, which is a validated novel method providing better accuracy than the Friedewald equation in the estimation of LDL-C. Immanuel SS et al. HAIDER. 2013;310(19): 3988-1497 (http://education.[employer]/faq/WDJ860) CHOLESTEROL/HDL RATIO 3.9 <5.0 (calc) [facility] NON-HDL CHOLESTEROL 156(H) <130 mg/dL (calc) [facility] Comment: For patients with diabetes plus 1 major ASCVD risk factor, treating to a non-HDL-C goal of <100 mg/dL (LDL-C of <70 mg/dL) is considered a therapeutic option. Blood Blood / Unknown 11/06/2021 8 :32 AM EDT 11/07/2021 5:27 AM EDT Stephen Villalba PRIVATE DUTY LPN,CLINICAL APPLICATIONS SPECIALIST LAB - BLOOD DRAW Final Re sult 9+, [facility] [address] [place] [address], * (ABNORMAL) COMPREHENSIVE METABOLIC PANEL (11/06/2021 8:32 AM EDT) GLUCOSE 168(H) 65 - 99 mg/dL [facility] Comment: ? Fasting reference interval For someone without known diabetes, a glucose value >125 mg/dL indicates that they may have diabetes and this should be confirmed with a follow-up test. UREA NITROGEN 13 7 - 25 mg/dL [facility] CREATININE 0.57 0.50 - 0.99 mg/dL [facility] Comment: For patients >49 years of age, the reference limit for Creatinine is approximately 13% higher for people identified as -Lithuanian. EGFR NON-AFR. MACEDONIAN 99 > OR = 60 mL/min/1 .73m2 9+, [facility] EGFR 115 > OR = 60 mL/min/1 .73m2 [facility] BUN/CREATININE RATIO NOT APPLICABLE 6 - 22 (calc) 9+, [facility] SODIUM 140 135 - 146 mmol/L [facility] [employer], [place] POTASSIUM 4.6 3.5 - 5.3 mmol/L 9+, [facility] CHLORIDE 103 98 - 110 mmol/L 9+, [facility] CARBON DIOXIDE 28 20 - 32 mmol/L [facility], [place] CALCIUM 9.2 8.6 - 10.4 mg/dL [facility] PROTEIN, TOTAL 7.2 6.1 - 8.1 g/dL [facility] ALBUMIN 4.4 3.6 - 5.1 g/dL [facility] [employer], [place] GLOBULIN, CALCULATED 2.8 1.9 - 3.7 g/dL (calc) [facility] A/G RATIO 1.6 1.0 - 2.5 (calc) [facility] BILIRUBIN, TOTAL 0.5 0.2 - 1.2 mg/dL [facility] ALKALINE PHOSPHATASE 79 37 - 153 U/L 9+, [facility] AST 12 10 - 35 U/L 9+, [facility] ALT 19 6 - 29 U/L [facility] Blood Blood / Unknown 11/06/2021 8 :32 AM EDT 11/07/2021 5:27 AM EDT Stephen Villalba APRN, CNP LAB - BLOOD DRAW Final Re sult Performing Organization Address [facility]/ZIP Co de Phone Number 9+, [place] [address], * MICROALBUMIN/CREATININE RATIO, URINE, RANDOM (11/01/2021 9:32 AM EDT) CREATININE, RANDOM URINE 34 20 - 275 mg/dL [facility] MICROALBUMIN, RANDOM URINE 0.2 mg/dL [facility] Comment: Reference Range Not established MICROALBUMIN/CREAT RATIO 6 <30 mcg/mg creat [facility] Comment: The ADA defines abnormalities in albumin excretion as follows: Albuminuria Category ?Result (mcg/mg creatinine) Normal to Mildly increased ?? <30 Moderately increased ? 30-299 Severely increased ? > OR = 300 The ADA recommends that at least two of three specimens collected within a 3-6 month period be abnormal before considering a patient to be within a diagnostic category. Urine Urine specimen / Unknown 11/01/2021 9:32 AM EDT 11/01/2021 10:59 PM EDT Stephen Villalba APRN, CNP LAB - NO BLOOD DRAW Final Result Performing Organization Address [facility] Co de Phone Number 9+, [address] from Last 3 Months or Most Recently Relevant to Health Maintenance Insurance [employer] MEDICAID [id number] Member Subscriber Plan / Payer (Ef fective 2019-Present) Name:Shazia Contreras Relation to Subscriber:Self Name:Shazia Contreras Payer ID:[id number] Group ID:Not on file Type:Medicaid Address: [facility] [address] [place] [address] [facility] MEDICAID Care Teams Crowning Hammer Operator Relationship Specialty Start Date End Date Chava Burdick MD [address] [place], [place] [id number] PCP - General Family Medicine, Physician 06/13/22
--- OUTSIDE RECORDS SUMMARY | 2024-08-21 14:48 | XMS_ITS | Encounter Summary ---
Author Organization [employer] Address [address] [place] [address] Care Team Providers Care Assistant Professor Of Radiology Name Role Phone Nathaly Hemphill ELIE Primary Care Provider [phone] Reason for Visit * Reason Comments Med Change Request Encounter Details Date Type Department Care Team ([facility] st Contact Info) Description 08/11/2024 Refill [facility] [address], [place] [phone] Moses Kenny MD [address] [place], [place] [phone] Type 2 diabetes mellitus with diabetic chronic kidney disease, unspecified CKD stage, unspecified whether long-term insulin use ([facility]) Social History Tobacco Use Types Packs/Day Years [...] Description 08/27/2024 10:30 AM EST Office Visit [facility] [address] [place] [address] TarkaSmitha, OD [address] [place] [address] 09/09/2024 10:15 AM EST Office Visit [facility] [address] [place] [address] Nathaly Hemphill NP [address] [place] [address] documented as of this encounter Visit Diagnoses Diagnosis Type 2 diabetes mellitus with diabetic chronic kidney disease, unspecified CKD stage, unspecified whether long-term insulin use ([facility]) documented in this encounter Additional Health Concerns Assessment Noted Time PHQ-9 Depression Total Score: 0 04/17/20 24 2:18 PM EDT documented as of this encounter Care Teams Assistant Professor Of Radiology Relationship Specialty Start Date End Date Nathaly Hemphill NP [address] [place] [address] PCP - General Family Medicine 04/20/24 documented as of this encounter
== END 2024-08-21 14:46 | disposition home or self-care (01) ==
LOC: HO.CT 14:45
PROVIDERS: PCP Physician Assistant; Visit Provider Nurse Practitioner Family
DX: R42 Dizziness and giddiness (principal)
CPT/HCPCS: 70450

== ENCOUNTER → 2024-08-21 14:47 | Outpatient (BNV) | payer MEDICARE, MEDICAID, SELFPAY | PROVIDERS: PCP Physician Assistant; Visit Provider Radiology Diagnostic Radiology | DX: R42 Dizziness and giddiness (principal) | CPT/HCPCS: 70450 ==

== ENCOUNTER 2025-01-04 12:05 | Outpatient (REF) | payer MEDICARE, MEDICAID, SELFPAY ==
--- NOTE | ~2025-01-04 | XR_ITS ---
EXAMINATION: XR FOOT, LEFT CLINICAL INFORMATION: PAIN , severe with ambulation for 2 weeks, plantar pain COMPARISON: None available. TECHNIQUE: AP, lateral, and oblique views of the left foot. FINDINGS: Joint spaces are preserved. There is no joint diastases. No fracture line or deformity. There is a moderate plantar calcaneal enthesophyte and a small Achilles calf cannot enthesophyte. XR/XR foot LT min 3V IMPRESSION: Calcaneal enthesophytes, a nonspecific finding. Electronically signed by: Giuliano Torres MD 01/04/2025 01:24 PM EDT
== END 2025-01-04 12:06 | disposition home or self-care (01) ==
LOC: HO.HHCX 12:05
PROVIDERS: Visit Provider Nurse Practitioner Family
DX: M72.2 Plantar fascial fibromatosis (principal)
CPT/HCPCS: 73630

== ENCOUNTER → 2025-01-04 12:08 | Outpatient (BNV) | payer MEDICARE, MEDICAID, SELFPAY | PROVIDERS: Visit Provider Radiology Diagnostic Radiology | DX: M77.32 Calcaneal spur, left foot (principal) | CPT/HCPCS: 73630 ==